=== PATIENT | female | born 1960 | race Caucasian/White ===

== ENCOUNTER 2017-06-02 13:37 | Inpatient (IN) | payer MEDICAID, OTHER ==
[2017-06-02] MEDS ORDERED: Dextrose 50% SYRINGE Inj (50 ml) IVP ONE (14:24)
--- NOTE | 2017-06-02 14:28 | ED PDOC ---
HPI: Psych/Substance Abuse Time Seen by Provider: 06/02/17 13:45 Chief Complaint (Nursing): Psychiatric Evaluation Chief Complaint (Provider): Psychiatric Evaluation ED Caveat: Altered Mental Status History Per: EMS History/Exam Limitations: clinical condition (EDP) Current Symptoms Are (Timing): Still Present Additional Complaint(s): 56 year old female presents to the emergency department via EMS for psychiatric evaluation after patient called 911 multiple times from inside her locked bathroom. Patient arrived screaming, flailing arms, crying and yelling for her children. Unable to obtain history due to patient's current condition. Patient is a threat to herself and staff. PMD: none provided Past Medical History Reviewed: Unable To Obtain (EDP) Vital Signs: Last Vital Signs Temp Pulse Resp 22 06/02/17 13:40 BP Pulse Ox 100 06/02/17 13:40 - Family History Family History: States: Unknown Family Hx - Home Medications Home Medications: Ambulatory Orders Medication Instructions Recorded Unobtainable 06/02/17 - Allergies Allergies/Adverse Reactions: Allergies Allergy/AdvReac Type Severity Reaction Status Date / Time No Known Allergies Allergy Verified 06/02/17 22:43 Review of Systems Review Of Systems: ROS cannot be obtained secondary to pt's inabilty to answer questions. (EDP) Physical Exam - Physical Exam Neurologic/Psych: Positive for: Alert, Mood/Affect (agitated, screaming and uncooperative). Negative for: Aphasia - Laboratory Results Result Diagrams: 06/02/17 14:15 06/02/17 14:15 - ECG O2 Sat by Pulse Oximetry: 100 (RA) Pulse Ox Interpretation: Normal Medical Decision Making Medical Decision Making: Initial Impression: Psychiatric Evaluation Initial Plan: * Acetaminophen * Alcohol serum * BMP * Drug screen, urine * Salicylate * CBC * Ativan 2mg IM * Dextrose 50% inj 50ml IVP * Haldol 5mg IM * UA * Restraints ____ Time: 1530 --Toxicology: elevated levels of acetaminophen and alcohol. Time: 1700 --Patient is endorsed to Dr. Bernie Law. Pending crisis evaluation. Scribe Attestation: Documented by Betzy Garber, acting as a scribe for Mary Pompa MD. Provider Scribe Attestation: All medical record entries made by the Scribe were at my direction and personally dictated by me. I have reviewed the chart and agree that the record accurately reflects my personal performance of the history, physical exam, medical decision making, and the department course for this patient. I have also personally directed, reviewed, and agree with the discharge instructions and disposition. Disposition - Clinical Impression Clinical Impression: Depression - Patient ED Disposition Is Patient to be Admitted: Transfer of Care - Disposition Disposition: Transfer of Care Disposition Time: 17:00 Condition: STABLE Patient Signed Over To: Bernie Law
[2017-06-02 14:45] LABS: BASO # 0.1 K/uL (0.0-0.2); BASO % 1.1 % (0.0-2.0); EOS # 0.1 K/uL (0.0-0.7); EOS % 1.3 % (0.0-4.0); HEMOGLOBIN 10.4 g/dL (12.0-16.0); LYMPH # 2.5 K/uL (1.0-4.3); LYMPH % 44.2 % (20.0-40.0); MEAN CELL VOLUME 59.3 fl (81.0-99.0); MEAN CORPUSCULAR HEMOGLOBIN 18.6 pg (27.0-31.0); MEAN CORPUSCULAR HGB CONC 31.4 g/dL (33.0-37.0); MONO # 0.3 K/uL (0.0-0.8); MONO % 4.6 % (0.0-10.0); NEUT # 2.8 K/uL (1.8-7.0); NEUT % 48.8 % (50.0-75.0); NRBC % 0.1 % (0.0-0.0); RBC 5.58 Mil/uL (3.80-5.20); WHITE BLOOD COUNT 5.7 K/uL (4.8-10.8)
[2017-06-02 14:56] LABS: CALCIUM 9.5 mg/dL (8.4-10.2); GFR AFRICAN-AMERICAN > 60; GFR NON-AFRICAN AMERICAN > 60
[2017-06-02 14:57] LABS: BLOOD UREA NITROGEN 13 mg/dl (7-17)
[2017-06-02 15:13] LABS: BENZODIAZEPINES, UR NEGATIVE (NEGATIVE); PHENCYCLIDINE, UR NEGATIVE (NEGATIVE)
[2017-06-02 15:15] LABS: BARBITURATES, UR NEGATIVE (NEGATIVE); OPIATES, UR NEGATIVE (NEGATIVE)
[2017-06-02 15:16] LABS: URINE BILIRUBIN NEGATIVE (NEGATIVE); URINE BLOOD NEGATIVE (NEGATIVE); URINE CLARITY CLEAR (Clear); URINE COLOR STRAW (YELLOW); URINE GLUCOSE (UA) NEG (Normal); URINE HYALINE CAST >20 /hpf (0-2); URINE LEUKOCYTE ESTERASE NEG Leu/uL (Negative); URINE NITRATE NEGATIVE (NEGATIVE); URINE PROTEIN NEGATIVE (NEGATIVE); URINE UROBILINOGEN 0.2-1.0 mg/dL (0.2-1.0)
[2017-06-02] MEDS ORDERED: Magnesium Hydroxide Susp 30 ml UD PO PRN (22:22)
[2017-06-02] MEDS ORDERED: DiphenhydrAMINE 50 mg/ml Inj IM PRN (22:22)
[2017-06-02] MEDS ORDERED: Alum-Mag Hydrox-Simethicone Susp (30 mL) PO PRN (22:22)
[2017-06-02 22:47] VITALS: RESP 18
--- NOTE | 2017-06-02 23:04 | PCM.BM ---
Treatment Plan Problems - Problems identified on initial assessmt Hopelessness/Helplessness Date Initiated: 06/02/17 Time Initiated: 23:03 Assessment reference: NA Status: Active Treatment assets and liabiliti Patient Assests: cooperative, educated, physically healthy, negotiates basic needs Patient Liabilities: poor support system, relationship conflicts, substance abuse, other (alcohol abuse) - Milieu Protocol Maintain good personal hygiene: daily Remind patient to perform daily oral care , every other day Encourage regular showers Conduct patient checks and document Observation sheet: Q15 minutes Maintain personal safety: every shift Educate patient to report safety concerns to staff, every shift Monitor environment for contraband/sharps Medication safety: Monitor for expected outcome, potential side effects: every shift, Assess barriers to learning: every shift, Assess readiness for medication education: every shift
[2017-06-03 06:23] LABS: T4 7.37 ug/dl (5.5-11.0)
[2017-06-03] MEDS: Multivitamin With Minerals Tab PO SCH (08:59)
--- NOTE | 2017-06-03 14:22 | PCM.PSYCH ---
Initial Psychiatric Evaluation - Initial Psychiatric Evaluation Type of Admission: Voluntary Legal Status: Capacity Chief Complaint (in patient's own words): I just could not sleep and I am angry at my ex he always get away with it Patient's Reaction to Hospitalization: pt agreed to get help History of Present Illness and Precipitating Events: Pt is a 56 year old, , Female, referred to ED by her evp chief exploration officer, Naty Kang, for aggressive behavior and increased irritability. Pt has hx of depression, anxiety opiate use in full remission , alcohol use , pt has been recently using alcohol daily dut to being stressed with the legal conflict with her ex Pt reported having a diagnosis of Depression, Anxiety, OCD, and ADD, and is currently prescribed Klonopin, Xanax, and Prozac pt reported decreased sleep, decreased appetite,anhedonia, anger irritability poor energy passive suicidal ideation no plan Current Medications: Active Medications Generic Name Dose Route Start Last Admin Trade Name Freq PRN Reason Stop Dose Admin Acetaminophen 650 mg 06/02/17 22:22 Tylenol 325mg Tab PO Q4 PRN pain level 4-7 Al Hydrox/Mg Hydrox/Simethicone 30 ml 06/02/17 22:22 Maalox Plus 30 Ml PO Q4 PRN Dyspepsia Diphenhydramine HCl 50 mg 06/02/17 22:22 Benadryl IM Q6 PRN Extrapyramidal S/S Unable PO Diphenhydramine HCl 50 mg 06/02/17 22:22 06/02/17 22:51 Benadryl PO 50 mg Q6 PRN Administration Extrapyramidal Symptoms Diphenhydramine HCl 50 mg 06/02/17 22:48 Benadryl PO HS PRN Sleep Duloxetine HCl 20 mg 06/03/17 11:24 06/03/17 12:42 Cymbalta PO 20 mg DAILY CHRIS Administration Folic Acid 1 mg 06/03/17 09:00 06/03/17 08:59 Folic Acid PO 1 mg DAILY CHRIS Administration Gabapentin 100 mg 06/03/17 11:22 06/03/17 12:45 Neurontin PO Not Given TID CHRIS Haloperidol 5 mg 06/02/17 22:22 Haldol PO Q4 PRN Agitation Haloperidol Lactate 5 mg 06/02/17 22:22 Haldol IM Q4 PRN Agitation, Unable to Take PO Lorazepam 2 mg 06/02/17 22:22 Ativan IM Q4 PRN Anxiety/Agitation,Unable PO Lorazepam 2 mg 06/02/17 22:22 Ativan PO Q4 PRN Anxiety/Agitation Lorazepam 1 mg 06/03/17 09:00 06/03/17 13:11 Ativan PO 1 mg TID CHRIS Administration Magnesium Hydroxide 30 ml 06/02/17 22:22 Milk Of Magnesia PO HS PRN Constipation Multivitamins/Minerals 1 tab 06/03/17 09:00 06/03/17 08:59 Therapeutic-M Tab PO 1 tab DAILY CHRIS Administration Thiamine HCl 100 mg 06/03/17 09:00 06/03/17 08:59 Vitamin B1 Tab PO 100 mg DAILY CHRIS Administration Trazodone HCl 50 mg 06/03/17 22:00 Desyrel PO HS CHRIS Past Psychiatric History - Past Psychiatric History Explanation of prior treatment: multiple rehabs, at least two inpatient hospitalizations History of Abuse: denied History of ETOH/Drug Use: history of opiate and alcohol use Pertinent Medical Hx (Current Medical&Sleep Prob, Allergies): Allergies Allergy/AdvReac Type Severity Reaction Status Date / Time No Known Allergies Allergy Verified 06/02/17 22:43 Unobtainable 06/02/17 Mental Status Examination - Personal Presentation Personal Presentation: Looks stated age - Affect Affect: Depressed - Motor Activity Motor Activity: Psychomotor Agitation - Reliability in Providing Information Reliability in Providing Information: Fair - Speech Speech: Relevant - Mood Mood: Depressed, Anxious - Formal Thought Process Formal Thought Process: Circumstantial - Hallucinations/Delusions Additional comments: denied perceptual disturbances non elicited - Obsessions/Compulsions Obsessions: No Compulsions: No - Risk Risk: Withdrawal, Diminished functioning - Strength & Assets Inventory Strength & Assets Inventory: Family support - Limitations Additional comments: poor insight DSM 5 DX - DSM 5 DSM 5 Diagnosis: alcohol induced mood disorder with depressive features alcohol use disorder generalized anxiety disorder depression - Recommended/Plan of Treatment Treatment Recommendations and Plan of Treatment: neurontin 100mg tid trazodone 50mg qhs cymbalta 20g ativan for symptoms and signs of alcohol withdrawal , down titrate gradually motivational group and supportive therapy
--- NOTE | 2017-06-03 16:11 | CP.PCM.CON ---
History of Present Illness - History of Present Illness History of Present Illness: This is a 56 yo female with a past medical history of sciatica, degenerative disc disease, depression, anxiety, opiate abuse in full remission, OCD, ADD, alcohol abuse, history of anemia, who presented to the ED by ambulance after calling 911 multiple times. When EMS providers arrived she was found to be screaming and flailing, acutely intoxicated. She was then admitted voluntarily to the psychiatry unit. The patient appears calm today. She states that she has taken ultram in the past for chronic sciatic pain that she has. She denies any other problems including chest pain, shortness of breath, weakness, headache, fever, chills, nausea, vomiting, or diarrhea. Review of Systems - Hematologic/Lymphatic Additional comments: A 12 point review of systems was conducted and found to be negative other than in HPI. Past Patient History - Infectious Disease Hx of Infectious Diseases: None - Past Medical History & Family History Past Medical History?: Yes Past Family History: Reviewed and not pertinent - Past Social History Smoking Status: Unknown If Ever Smoked Alcohol: > 2 Drinks/Day - CARDIAC Hx Cardiac Disorders: No Hx Hypercholesterolemia: No Hx Hypertension: No - PULMONARY Hx Respiratory Disorders: No Hx Tuberculosis: No - NEUROLOGICAL HX Cerebrovascular Accident: No Hx Seizures: No - ENDOCRINE/METABOLIC Hx Diabetes Mellitus Type 1: No Hx Diabetes Mellitus Type 2: No Hx Hyperthyroidism: No Hx Hypothyroidism: No - HEMATOLOGICAL/ONCOLOGICAL Hx Cancer: No Hx Human Immunodeficiency Virus (HIV): No - GASTROINTESTINAL Hx Gall Bladder Disease: Yes - GENITOURINARY/GYNECOLOGICAL Hx Sexually Transmitted Disorders: No - PSYCHIATRIC Hx Anxiety: Yes Hx Depression: Yes Hx Substance Use: No (unknwon) - SURGICAL HISTORY Hx Cholecystectomy: Yes (more than 10 yrs ago) - ANESTHESIA Hx Anesthesia: Yes Meds Allergies/Adverse Reactions: Allergies Allergy/AdvReac Type Severity Reaction Status Date / Time No Known Allergies Allergy Verified 06/02/17 22:43 - Medications Medications: Current Medications Acetaminophen (Tylenol 325mg Tab) 650 mg PO Q4 PRN PRN Reason: pain level 4-7 Al Hydrox/Mg Hydrox/Simethicone (Maalox Plus 30 Ml) 30 ml PO Q4 PRN PRN Reason: Dyspepsia Diphenhydramine HCl (Benadryl) 50 mg IM Q6 PRN PRN Reason: Extrapyramidal S/S Unable PO Diphenhydramine HCl (Benadryl) 50 mg PO Q6 PRN PRN Reason: Extrapyramidal Symptoms Last Admin: 06/02/17 22:51 Dose: 50 mg Diphenhydramine HCl (Benadryl) 50 mg PO HS PRN PRN Reason: Sleep Duloxetine HCl (Cymbalta) 20 mg PO DAILY [facility] Last Admin: 06/03/17 12:42 Dose: 20 mg Folic Acid (Folic Acid) 1 mg PO DAILY [facility] Last Admin: 06/03/17 08:59 Dose: 1 mg Gabapentin (Neurontin) 100 mg PO TID [facility] Last Admin: 06/03/17 12:45 Dose: Not Given Haloperidol (Haldol) 5 mg PO Q4 PRN PRN Reason: Agitation Haloperidol Lactate (Haldol) 5 mg IM Q4 PRN PRN Reason: Agitation, Unable to Take PO Lorazepam (Ativan) 2 mg IM Q4 PRN PRN Reason: Anxiety/Agitation,Unable PO Lorazepam (Ativan) 2 mg PO Q4 PRN PRN Reason: Anxiety/Agitation Lorazepam (Ativan) 1 mg PO TID [facility] Last Admin: 06/03/17 13:11 Dose: 1 mg Magnesium Hydroxide (Milk Of Magnesia) 30 ml PO HS PRN PRN Reason: Constipation Multivitamins/Minerals (Therapeutic-M Tab) 1 tab PO DAILY [facility] Last Admin: 06/03/17 08:59 Dose: 1 tab Thiamine HCl (Vitamin B1 Tab) 100 mg PO DAILY [facility] Last Admin: 06/03/17 08:59 Dose: 100 mg Tramadol HCl (Ultram) 50 mg PO Q6 PRN PRN Reason: pain 4-10 Trazodone HCl (Desyrel) 50 mg PO HS [facility] Physical Exam - Additional Findings Additional findings: Physical exam: Constitutional- cooperative, awake, alert Head- NCAT, PERRL Eye- PERRL, EOMI ENT- normal exam, MMM. Neck- normal inspection, supple, no JVD Respiratory- CTAB, no wheezes rales rhonchi Cardiovascular- RRR, +S1, +S2 no MRG GI/Abdominal- normal bowel sounds, soft, no mass, no hsm Skin- warm, dry Extremities Exam- normal capillary refill, normal inspection Neurological Exam- alert, awake, oriented Psych- normal mood, normal affect Results - Vital Signs Recent Vital Signs: Last Vital Signs Temp 99.5 F 06/03/17 09:13 Pulse 77 06/03/17 09:13 Resp 18 06/03/17 09:13 BP 124/75 06/03/17 09:13 Pulse Ox 98 06/02/17 21:46 - Labs Result Diagrams: 06/02/17 14:15 06/02/17 14:15 Labs: Laboratory Results - last 24 hr 06/03/17 06/03/17 05:30 05:30 Hemoglobin A1c 5.6 Triglycerides 56 Cholesterol 199 LDL Cholesterol Direct 77 HDL Cholesterol 106 H Thyroxine (T4) 7.37 TSH 3rd Generation 3.61 Assessment & Plan - Assessment and Plan (Free Text) Plan: ASSESSMENT/PLAN 1) Sciatica, chronic - Start Ultram 50 mg po q6h for pain 4-10 - continue Acetaminophen PRN for pain 1-3 2) Anemia, mild - MCV 59.3, likely iron deficiency anemia, possibly due to poor po intake/ alcoholism - Denies melena or history of rectal bleeding - Obtain iron profile - Start Ferrous sulfate if iron is low 3) Alcohol induced mood disorder with depressive features - management as per psychiatry 4) Generalized anxiety disorder - management as per psychiatry
[2017-06-03 16:29] LABS: IRON 113 ug/dL (37-170)
[2017-06-03 16:39] LABS: % IRON SATURATION 34 % (20-55); TOTAL IRON BINDING CAPACITY 331 ug/dL (250-450)
[2017-06-04] MEDS: Multivitamin With Minerals Tab PO SCH (08:50)
--- NOTE | 2017-06-04 14:16 | PCM.PYCHPN ---
Psychiatric Progress Note - Psychiatric Progress Note Patient seen today, length of contact: pt evaluated discussed with team chart reviewed Patient Chief Complaint: I slept last night so I feel better Problems Identified/Issues Discussed: pt seen in day room, presenting with brighter affect appears less anxious reported better mood and improved sleep, showing insight into illness and agreed to start partial rehab program as recommended by her administrative hearing officer no reported withdrawal symptoms pt denied any current suicidal or homicidal ideations denied perceptual disturbances, no reported side effects of medications Medical Problems: multiple rehabs, at least two inpatient hospitalizations DSM 5 Symptoms Update: alcohol induced mood disorder' alcohol induced anxiety disorder Medication Change: Yes (decrease ativan, prn vistaril) Medical Record Reviewed: Yes Mental Status Examination - Cognitive Function Orientation: Person, Place, Situation Memory: Intact Attention: WNL Concentration: WNL Association: WNL Fund of Knowledge: WN Decription of patient's judgement and insights: fair insight and judgement - Mood Mood: Depressed, Anxious - Affect Affect: Depressed - Speech Speech: Appropriate - Formal Thought Process Formal Thought Process: Circumstantial Psychotic Thoughts and Behaviors: pt denied perceptual disturbances, non elicited - Suicidal Ideation Suicidal Ideation: No - Homicidal Ideation Homicidal Ideation: No Goal/Treatment Plan - Goal/Treatment Plan Need for Continued Stay: Severe depression anxiety, Discharge may exacerbated symptoms Progress Toward Problem(s) and Goals/Treatment Plan: neurontin 100mg tid trazodone 50mg qhs cymbalta 20g ativan for symptoms and signs of alcohol withdrawal , down titrate gradually motivational group and supportive therapy
[2017-06-05 04:43] VITALS: O2SAT 100
[2017-06-05] MEDS: Multivitamin With Minerals Tab PO SCH (08:58)
[2017-06-05 09:21] VITALS: BP 131/66; PULSE 80; TEMP 98.1
--- NOTE | 2017-06-05 11:29 | PCM.PYCHDC ---
Mental Status Examination - Mental Status Examination Orientation: Person, Place, Situation Memory: Intact Mood: Neutral Affect: Broad Speech: Appropriate Attention: WNL Concentration: WNL Association: WNL Fund of Knowledge: WNL Formal Thought Process: No Impairment Description of patient's judgement and insight: fair insight and judgement Psychotic Thoughts and Behaviors: pt denied perceptual disturbances, non elicited Suicidal Ideation: No Current Homicidal Ideation?: No Discharge Summary - Discharge Note Reason for Hospitalization: Pt is a 56 year old, , Female, referred to ED by her chief commercial officer, Naty Kang, for aggressive behavior and increased irritability. Pt has hx of depression, anxiety opiate use in full remission , alcohol use , pt has been recently using alcohol daily dut to being stressed with the legal conflict with her ex Pt reported having a diagnosis of Depression, Anxiety, OCD, and ADD, and is currently prescribed Klonopin, Xanax, and Prozac pt reported decreased sleep, decreased appetite,anhedonia, anger irritability poor energy passive suicidal ideation no plan Consultations:: List each consultation separately and include: 1. Reason for request. 2. Findings. 3. Follow-up Summary of Hospital Course include:: 1. Description of specific treatment plan utilized for patients during their course of treatmen. 2. Summarize the time- course for resolution of acute symptoms and/or regressed behaviors. 3. Describe issues identified and worked on during hospitalization. 4. Describe medication utilized. 5. Describe medical problems identified and treated. 6. Reassessment of suicide risk Summary of Hospital Course: Pt was started on ativan protocol for alcohol withdrawal, cymbalta 20mg daily for depression and anxiety and neurontin 100mg tid for anxiety motivational group and supportive therapy provided chief commercial officer contacted by nursing home social worker upon pt consent pt on discharge , mental status was stable denied suicidal or homicidal ideations denied perceptual disturbances, no reported side effects of medications - Final Diagnosis (DSM 5) Condition upon Discharge: STABLE DSM 5: alcohol induced mood disorder with depressive features alcohol induced anxiety disorder generalized anxiety disorder Disposition: HOME/ ROUTINE Follow-up Treatment Plan: neurontin 100mg tid trazodone 50mg qhs cymbalta 20g ativan for symptoms and signs of alcohol withdrawal , down titrate gradually motivational group and supportive therapy Prescriptions/Medication Reconciliation: DULoxetine [Cymbalta] 20 mg PO DAILY 30 Days #30 ecc Gabapentin [Neurontin] 100 mg PO TID 30 Days #90 cap hydrOXYzine Pamoate [Vistaril] 25 mg PO TID PRN 30 Days #90 cap PRN Reason: Anxiety traZODone [Desyrel] 50 mg PO HS 30 Days #30 tab - Antipsychotic Medications Pt discharged on 2 or more routine antipsychotic medications: No
== END 2017-06-05 11:40 | disposition home or self-care (01) | DRG 895 ==
LOC: H.ER 13:37 → H.ERHOLD 19:16 → H.PSYCH 22:07
PROVIDERS: ADMIT Psychiatry & Neurology Psychiatry; ATTEND Psychiatry & Neurology Psychiatry
PROC: HZ57ZZZ Individual Psychotherapy for Substance Abuse Treatment, Motivational Enhancement (ICD-10-PCS; principal; 2017-06-02)
PROC: HZ59ZZZ Individual Psychotherapy for Substance Abuse Treatment, Supportive (ICD-10-PCS; 2017-06-02)
PROC: GZHZZZZ Group Psychotherapy (ICD-10-PCS; 2017-06-02)
DX: F10.14 Alcohol abuse with alcohol-induced mood disorder (principal); R45.851 Suicidal ideations; D50.9 Iron deficiency anemia, unspecified; F41.1 Generalized anxiety disorder; F10.180 Alcohol abuse with alcohol-induced anxiety disorder; M54.30 Sciatica, unspecified side; F42.9 Obsessive-compulsive disorder, unspecified

== ENCOUNTER 2018-04-20 07:50 | Emergency (ER) | payer MEDICAID ==
[2018-04-20 07:58] VITALS: RESP 18
--- NOTE | 2018-04-20 09:37 | ED PDOC ---
HPI: Neurologic - General Time Seen by Provider: 04/20/18 08:16 Chief Complaint (Nursing): Anxiety Chief Complaint (Provider): Anxiety Source: patient Exam Limitations: no limitations - History of Present Illness Timing/Duration: other (this morning) Allergies/Adverse Reactions: Allergies No Known Allergies Allergy (Verified 06/02/17 22:43) Home Medications: Ambulatory Orders DULoxetine [Cymbalta] 20 mg PO DAILY 30 Days #30 ecc 06/05/17 Gabapentin [Neurontin] 100 mg PO TID 30 Days #90 cap 06/05/17 hydrOXYzine Pamoate [Vistaril] 25 mg PO TID PRN 30 Days #90 cap 06/05/17 traZODone [Desyrel] 50 mg PO HS 30 Days #30 tab 06/05/17 Additional Complaint(s): Patient is a 57 y/o female with a PMHx of depression, anxiety, and gall bladder disease who presents to the ED for evaluation a series of panic attack's onset this morning. Patient reports she is unsure as to what is causing them. Patient feels anxious and has been pacing back and forth. Patient states she ran out of her 1 mg Xanax medication. Patient wants to speak with a psychiatrist. PCP: None Provided Past Medical History Vital Signs: Last Vital Signs Temp 98.3 F 04/20/18 07:56 Pulse 89 04/20/18 07:56 Resp 18 04/20/18 07:56 BP 122/77 04/20/18 07:56 Pulse Ox 99 04/20/18 07:56 - Medical History PMH: Anxiety, Depression, Gall Bladder Disease Denies: Diabetes, Hepatitis, HIV, HTN, Hypercholesterolemia, Hyperthyroidism, Hypothyroidism, Seizures, Sexually Transmitted Disease - Surgical History Surgical History: Cholecystectomy (more than 10 yrs ago) - Family History Family History: States: No Known Family Hx - Social History Current smoker - smoking cessation education provided: No Ex-Smoker (has not smoked in the last 12 months): No Alcohol: None Drugs: Denies - Home Medications Home Medications: Ambulatory Orders Medication Instructions Recorded DULoxetine [Cymbalta] 20 mg PO DAILY 30 Days #30 ecc 06/05/17 Gabapentin [Neurontin] 100 mg PO TID 30 Days #90 cap 06/05/17 hydrOXYzine Pamoate [Vistaril] 25 mg PO TID PRN 30 Days #90 cap 06/05/17 traZODone [Desyrel] 50 mg PO HS 30 Days #30 tab 06/05/17 - Allergies Allergies/Adverse Reactions: Allergies Allergy/AdvReac Type Severity Reaction Status Date / Time No Known Allergies Allergy Verified 06/02/17 22:43 Review of Systems ROS Statement: Except As Marked, All Systems Reviewed And Found Negative Psych: Positive for: Anxiety Physical Exam - Reviewed Nursing Documentation Reviewed: Yes Vital Signs Reviewed: Yes - Physical Exam Appears: Positive for: Non-toxic, In Acute Distress (restless) Head Exam: Positive for: ATRAUMATIC, NORMAL INSPECTION, NORMOCEPHALIC Skin: Positive for: Normal Color, Warm, Dry Eye Exam: Positive for: EOMI, Normal appearance, PERRL Neurologic/Psych: Positive for: Alert, Oriented, Other (anxiety). Negative for: Motor/Sensory Deficits Comments: Patient was pacing around, therefore, was unable to conduct further physical exam. - ECG O2 Sat by Pulse Oximetry: 99 (RA) Pulse Ox Interpretation: Normal Medical Decision Making Medical Decision Making: Time: 815 Impression: Anxiety and Panic Attack Plan: Crisis Evaluation Xanax 1 mg PO Scribe Attestation: Documented by Braeden Rutledge, acting as a scribe for Danna Mari MD. Provider Scribe Attestation: All medical record entries made by the Scribe were at my direction and personally dictated by me. I have reviewed the chart and agree that the record accurately reflects my personal performance of the history, physical exam, medical decision making, and the department course for this patient. I have also personally directed, reviewed, and agree with the discharge instructions and disposition. Disposition - Clinical Impression Clinical Impression: Anxiety, Anxiety attack - Patient ED Disposition Is Patient to be Admitted: No Doctor Will See Patient In The: Office Counseled Patient/Family Regarding: Studies Performed, Diagnosis, Need For Followup - Disposition Referrals: [facility] [Outside] Disposition: Routine/Home Disposition Time: 10:29 Condition: GOOD Additional Instructions: Celestino CASTRO, thank you for letting us take care of you today. Your provider was Danna Mari MD and you were treated for ANXIETY. The emergency medical care you received today was directed at your acute symptoms. If you were prescribed any medication, please fill it and take as directed. It may take several days for your symptoms to resolve. Return to the Emergency Department if your symptoms worsen, do not improve, or if you have any other problems. Please contact your doctor or call one of the physicians/clinics you have been referred to that are listed on the Patient Visit Information form that is included in your discharge packet. Bring any paperwork you were given at discharge with you along with any medications you are taking to your follow up visit. Our treatment cannot replace ongoing medical care by a primary care provider outside of the emergency department. Thank you for allowing the [facility] team to be part of your care today. If you had an X-Ray or CT scan: A Radiologist will review the ED reading if any change in treatment is needed we will contact you. If you had a blood, urine, or wound culture: It will take several days for the results, if any change in treatment is needed we will contact you. If you had an STI test: It will take 48 hours for the results. Please call after 1 week if you have not heard back. Instructions: Anxiety, Adult (DC)
[2018-04-20 11:03] VITALS: BP 117/74; PULSE 62; TEMP 98.2; O2SAT 100
== END 2018-04-20 10:45 | disposition home or self-care (01) ==
LOC: H.ER 07:50
DX: F41.9 Anxiety disorder, unspecified (principal)

== ENCOUNTER 2018-04-21 13:56 | Inpatient (IN) | payer MEDICAID ==
[2018-04-21 14:04] VITALS: O2SAT 99
--- NOTE | 2018-04-21 14:49 | ED PDOC ---
HPI: Psych/Substance Abuse Time Seen by Provider: 04/21/18 14:13 Chief Complaint (Nursing): Psychiatric Evaluation Chief Complaint (Provider): alcohol intoxication History/Exam Limitations: intoxication Onset/Duration Of Symptoms: Unknown Additional Complaint(s): brought to ER for altered mental status and lethargy pt admits to taking multiple sedating medications (xanax and pain medications) and alcohol today denies homicidal or suicidal ideation denies hallucinations Offers no complaints except feeling tired. Past Medical History Reviewed: Historical Data, Nursing Documentation, Vital Signs Vital Signs: Last Vital Signs Temp 98.7 F 04/21/18 13:58 Pulse 64 04/21/18 13:58 Resp 16 04/21/18 13:58 BP 108/64 04/21/18 13:58 Pulse Ox 99 04/21/18 13:58 - Medical History PMH: Anxiety, Depression, Gall Bladder Disease Denies: Diabetes, Hepatitis, HIV, HTN, Hypercholesterolemia, Hyperthyroidism, Hypothyroidism, Seizures, Sexually Transmitted Disease - Surgical History Surgical History: Cholecystectomy (more than 10 yrs ago) - Family History Family History: States: Unknown Family Hx - Social History Alcohol: Social Drugs: Prescription medications - Immunization History Hx Tetanus Toxoid Vaccination: No Hx Influenza Vaccination: No Hx Pneumococcal Vaccination: No - Home Medications Home Medications: Ambulatory Orders Medication Instructions Recorded ALPRAZolam [Xanax] 1 mg PO HS 04/20/18 Amphetamine Salt Combination 10 mg PO BID 04/20/18 [Adderall] Fluoxetine HCl [Prozac] 40 mg PO DAILY 04/21/18 Gabapentin [Neurontin] 600 mg PO Q8 04/21/18 oxyCODONE [oxyCODONE Immediate 10 mg PO Q12 PRN 04/21/18 Release Tab] traMADol [Ultram] 50 mg PO Q6 PRN 04/21/18 - Allergies Allergies/Adverse Reactions: Allergies Allergy/AdvReac Type Severity Reaction Status Date / Time No Known Allergies Allergy Verified 04/20/18 11:16 Review of Systems ROS Statement: Except As Marked, All Systems Reviewed And Found Negative Constitutional: Positive for: Weakness Psych: Positive for: Anxiety. Negative for: Suicidal ideation, Withdrawal Physical Exam - Reviewed Nursing Documentation Reviewed: Yes Vital Signs Reviewed: Yes - Physical Exam Appears: Positive for: No Acute Distress (but intoxicated) Head Exam: Positive for: ATRAUMATIC, NORMOCEPHALIC Skin: Positive for: Warm, Dry Eye Exam: Positive for: Conjunctival injection ENT: Positive for: Normal ENT Inspection Neck: Positive for: Painless ROM, Supple Cardiovascular/Chest: Positive for: Regular Rate, Rhythm. Negative for: Murmur Respiratory: Positive for: Normal Breath Sounds. Negative for: Respiratory Distress Gastrointestinal/Abdominal: Positive for: Soft. Negative for: Tenderness Back: Positive for: Normal Inspection. Negative for: Decreased ROM Extremity: Positive for: Normal ROM. Negative for: Deformity Lymphatic: Negative for: Adenopathy Neurologic/Psych: Positive for: Mood/Affect (anxious mood but flat affect), Oth er (Sleepy but easily arousable, mildly slured speech). Negative for: Alert, Motor/Sensory Deficits - Laboratory Results Result Diagrams: 04/21/18 17:57 04/21/18 17:57 - ECG O2 Sat by Pulse Oximetry: 99 - Progress ED Course And Treament: 4p Pt had full meal in ER. Ambulating without difficulty. Stable for discharge. Detox resources included with discharge paperwork. 5p Upon discharge pt reported that she would try hang herself and tried to stay in bathroom of her room and wrap emergency cord around her neck. Crisis eval. 6p Evaluated by Slime PERALES who emerson Hough. Pt to be hospitalized for major depression and alcohol use disorder There are no acute medical conditions Condition: Improved Disposition - Clinical Impression Clinical Impression: Alcohol intoxication, Benzodiazepine dependence Counseled Patient/Family Regarding: Studies Performed, Diagnosis - Disposition Disposition: Routine/Home Disposition Time: 16:12 Condition: STABLE
[2018-04-21 18:06] LABS: BASO # 0.1 K/uL (0.0-0.2); BASO % 1.1 % (0.0-2.0); EOS # 0.1 K/uL (0.0-0.7); EOS % 1.7 % (0.0-4.0); HEMOGLOBIN 9.4 g/dL (12.0-16.0); LYMPH % 50.8 % (20.0-40.0); MEAN CORPUSCULAR HEMOGLOBIN 18.5 pg (27.0-31.0); MEAN CORPUSCULAR HGB CONC 31.9 g/dL (33.0-37.0); MEAN PLATELET VOLUME 8.8 fl (7.2-11.7); MONO # 0.3 K/uL (0.0-0.8); MONO % 4.4 % (0.0-10.0); NEUT # 2.5 K/uL (1.8-7.0); NRBC % 0.1 % (0.0-0.0); RBC 5.08 Mil/uL (3.80-5.20); RED CELL DISTRIBUTION WIDTH 16.8 % (11.5-14.5); WHITE BLOOD COUNT 5.8 K/uL (4.8-10.8)
[2018-04-21 18:15] LABS: ACETAMINOPHEN < 10.0 ug/ml (10.0-30.0); SALICYLATE < 1.0 mg/dl
--- NOTE | 2018-04-21 18:15 | RAD ---
Date of service: 04/21/2018 HISTORY: depression COMPARISON: No prior. TECHNIQUE: Chest PA and lateral FINDINGS: LUNGS: No active pulmonary disease. PLEURA: No significant pleural effusion identified. No pneumothorax apparent. CARDIOVASCULAR: No aortic atherosclerotic calcification present. Normal cardiac size. No pulmonary vascular congestion. OSSEOUS STRUCTURES: Thoracolumbar scoliosis. VISUALIZED UPPER ABDOMEN: For quadrant surgical clips. OTHER FINDINGS: None. IMPRESSION: No active disease.
[2018-04-21 18:16] LABS: ALB/GLOB RATIO 1.4 (1.0-2.1); ALBUMIN 4.2 g/dL (3.5-5.0); ALT/SGPT 28 U/L (9-52); AST/SGOT 31 U/L (14-36); BLOOD UREA NITROGEN 17 mg/dl (7-17); CALCIUM 9.2 mg/dL (8.4-10.2); GFR NON-AFRICAN AMERICAN > 60
[2018-04-21 18:23] LABS: BARBITURATES, UR NEGATIVE (NEGATIVE); BENZODIAZEPINES, UR POSITIVE (NEGATIVE); OPIATES, UR NEGATIVE (NEGATIVE); PHENCYCLIDINE, UR NEGATIVE (NEGATIVE)
[2018-04-21 18:24] LABS: SQUAMOUS EPITHIAL 1 /hpf (0-5); URINE BACTERIA OCC (<OCC); URINE BILIRUBIN NEGATIVE (NEGATIVE); URINE BLOOD NEGATIVE (NEGATIVE); URINE CLARITY CLOUDY (Clear); URINE COLOR YELLOW (YELLOW); URINE GLUCOSE (UA) NEG (NEGATIVE); URINE HYALINE CAST 0-2 /hpf (0-2); URINE LEUKOCYTE ESTERASE NEG Leu/uL (Negative); URINE PROTEIN 30 mg/dL (NEGATIVE); URINE UROBILINOGEN 0.2-1.0 mg/dL (0.2-1.0)
[2018-04-21] MEDS ORDERED: Alum-Mag Hydrox-Simethicone Susp (30 mL) PO PRN (21:31)
[2018-04-21] MEDS ORDERED: Magnesium Hydroxide Susp 30 ml UD PO PRN (21:31)
[2018-04-21] MEDS ORDERED: Bismuth Subsalicylate 262 mg/15 ml Sus (240 ml) PO PRN (21:31)
--- NOTE | 2018-04-21 22:08 | PCM.BM ---
<MaribethLuke - Last Filed: 04/21/18 22:06> Treatment Plan Problems - Problems identified on initial assessmt Hopelessness/Helplessness Date Initiated: 04/21/18 Time Initiated: 22:07 Assessment reference: NA Status: Active Feelings of worthlessness Date Initiated: 04/21/18 Time Initiated: 22:09 Assessment reference: NA Status: Active Agitated/Aggressive Behavior Date Initiated: 04/21/18 Time Initiated: 22:09 Assessment reference: NA Status: Active Ineffective Impulse Control Date Initiated: 04/21/18 Time Initiated: 22:10 Assessment reference: NA Status: Active Knowledge Deficit: Alcohol Use Date Initiated: 04/21/18 Time Initiated: 22:10 Assessment reference: NA Status: Active Treatment assets and liabiliti Patient Assests: cooperative, educated, physically healthy, negotiates basic needs Patient Liabilities: financial problems, substance abuse - Milieu Protocol Maintain good personal hygiene: every shift Encourage regular showers, every shift Remind patient to perform daily oral care, every shift Assist patient to perform ADL's Conduct patient checks and document Observation sheet: Q15 minutes Maintain personal safety: every shift Educate patient to report safety concerns to staff, every shift Monitor environment for contraband/sharps Medication safety: Monitor for expected outcome, potential side effects: every shift, Assess barriers to learning: every shift, Assess readiness for medication education: every shift <Nini Hough - Last Filed: 04/22/18 11:24> - Diagnosis (1) Alcohol-induced mood disorder Status: Acute Interventions: Medication management, Individual and group therapy, Psychoeducation, Motivational Interviewing 04/22/18 11:25 (2) Alcohol use disorder Status: Acute Interventions: Medication management, Individual and group therapy, Psychoeducation, Motivational Interviewing 04/22/18 11:25 (3) Benzodiazepine abuse Status: Acute Interventions: Medication management, Individual and group therapy, Psychoeducation, Motivational Interviewing 04/22/18 11:25 (4) Amphetamine and psychostimulant abuse Status: Acute Interventions: Medication management, Individual and group therapy, Psychoeducation, Motivational Interviewing 04/22/18 11:25 <Destiny Lala - Last Filed: 04/22/18 12:51> Family Contact Family contact: Patient agrees to contact, Family has been contacted by patient, Telephone contact initiated by staff Family contact name: Jeffry- son & Clau- daughter Family contacted how many times per week?: 1 Family contact comment: [phone] & [phone] - Outside Agency [facility] Care involvment: Information-sharing Agency contact number: - Goals for Treatment Patient goals for treatment: Pt will improve overall mood. Pt will be free of suicidal thoughts. Pt will develop strategies for thought distraction when reminating on the past. Pt will learn 2 positive coping skills to manger her depression. Pt will be free of alcohol use. Pt will learn five triggers for alcohol use. Discharge/Continuing Care - Education Needs Education Needs: Family Medication, Family Diagnosis/Disease Process, Family Coping Skills, Family Placement options, Family Community resources, Family Health Practices/Safety, Family Personal Hygiene/Grooming, Family Aftercare Safety Plan, Patient Medication, Patient Diagnosis/Disease Process, Patient Coping Skills, Patient Placement options, Patient Community resources, Patient Health Practices/Safety, Patient Personal Hygiene/Grooming, Patient Aftercare Safety Plan - Discharge Discharge Criteria: Tolerates medication w/o severe side effects, Free of Suicidal thoughts, Normal sleep pattern, Ability to care for self, Reduction of target symptoms, Other (Decreased depressive and anxiety symptoms) Discharge to:: Home, With Family - Additional Comments 04/22/18 12:33 Pt seen and discussed in team meeting. Reason for hospitalization reviewed and discussed. Pt reported she was self referred to the ED due to increased symptoms of anxiety and depression in the context of alcohol use and prescription misuse. Pt reported that prior to ED arrival she had 4 3oz bottles of vodka (approximately 8 shots). Pt reported feeling depressed and anxious. Pt reported that she consumes alcohol daily "no more than 4 bottles and no less than 2." Pt reported that she ran out of her anxiety medication (xanax). Pt reported having several triggers contributing to increased anxiety and depression and self medicating with alcohol. Pt refused to provide elaborate details about her triggers/stressors, but reported "a lot of family problems." Pt reported she resides with her boyfriend who financially supports her. Pt reported that the goal of the hospitalization is to "get my medication and get back on track." Pt's medications reviewed and discussed. psycho-education regarding medication management and compliance provided by Dr. Gianluca MD. Pt's social and medical issues reviewed. Pt reported provided bond writer with verba and written consent to contact her son, Jeffry ([phone]) and daughter, Clau ([phone]) for additional collateral information. Tx plan reviewed and discussed - pharmaceutical physician management, daily activity and group attendance, daily MD evaluation, Q15 in effect, and SW to contact family for collateral information. SW to continue to follow case. - Treatment Team Participation Discussed with Family/SO: No Was Patient/Family/SO present at Treatment Team Meeting: Yes
[2018-04-22 07:57] LABS: BASO # 0.1 K/uL (0.0-0.2); BASO % 1.4 % (0.0-2.0); EOS # 0.1 K/uL (0.0-0.7); HEMOGLOBIN 9.8 g/dL (12.0-16.0); LYMPH # 2.3 K/uL (1.0-4.3); LYMPH % 49.9 % (20.0-40.0); MEAN CELL VOLUME 58.4 fl (81.0-99.0); MEAN CORPUSCULAR HEMOGLOBIN 18.4 pg (27.0-31.0); MEAN CORPUSCULAR HGB CONC 31.6 g/dL (33.0-37.0); MEAN PLATELET VOLUME 8.9 fl (7.2-11.7); MONO # 0.2 K/uL (0.0-0.8); MONO % 4.1 % (0.0-10.0); NEUT # 1.9 K/uL (1.8-7.0); NEUT % 41.6 % (50.0-75.0); NRBC % 0.1 % (0.0-0.0); RBC 5.32 Mil/uL (3.80-5.20); RED CELL DISTRIBUTION WIDTH 16.4 % (11.5-14.5); WHITE BLOOD COUNT 4.6 K/uL (4.8-10.8)
[2018-04-22 08:18] LABS: IRON 93 ug/dL (37-170)
[2018-04-22 08:28] LABS: % IRON SATURATION 31 % (20-55); TOTAL IRON BINDING CAPACITY 303 ug/dL (250-450)
[2018-04-22 08:29] LABS: LDL CHOLESTEROL 96 mg/dL (0-129)
[2018-04-22 08:36] LABS: T4 6.33 ug/dl (5.5-11.0)
[2018-04-22 08:53] LABS: ALB/GLOB RATIO 1.3 (1.0-2.1); ALBUMIN 4.1 g/dL (3.5-5.0); ALT/SGPT 27 U/L (9-52); AST/SGOT 30 U/L (14-36); BLOOD UREA NITROGEN 19 mg/dl (7-17); CALCIUM 9.7 mg/dL (8.4-10.2); FERRITIN 35.7 ng/Ml (11.1-264.0); GFR NON-AFRICAN AMERICAN > 60; HDL CHOLESTEROL 108 MG/DL (30-70)
[2018-04-22 09:20] VITALS: BMI 20.7
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
[2018-04-22] MEDS: Multivitamin With Minerals Tab PO SCH (12:12)
--- NOTE | 2018-04-22 12:19 | CARD ---
APPROVED REPORT Date of service: 04/21/2018 EKG Measurement Heart [id number] <Conclusion> Normal sinus rhythm Normal ECG
[2018-04-22 13:23] LABS: FOLATE 5.4 ng/mL
--- NOTE | 2018-04-22 14:42 | CP.PCM.CON ---
History of Present Illness - History of Present Illness History of Present Illness: 57 yo female with history of ETOH abuse admitted to [facility] because of worsening depression and suicidal ideation. Review of Systems - Review of Systems All systems: reviewed and no additional remarkable complaints except (aside from those mentioned above, 12 point system review were negative by me) Past Patient History - Infectious Disease Hx of Infectious Diseases: None - Tetanus Immunizations Tetanus Immunization: Unknown - Past Medical History & Family History Past Medical History?: Yes - Past Social History Smoking Status: Light Smoker < 10 Cigarettes Daily Chewing Tobacco Use: No Cigar Use: No Alcohol: > 2 Drinks/Day Drugs: Prescription medications Home Situation {Lives}: With Family - CARDIAC Hx Hypercholesterolemia: No Hx Hypertension: No - PULMONARY Hx Tuberculosis: No - NEUROLOGICAL Hx Seizures: No - ENDOCRINE/METABOLIC Hx Hyperthyroidism: No Hx Hypothyroidism: No - HEMATOLOGICAL/ONCOLOGICAL Hx Human Immunodeficiency Virus (HIV): No - GASTROINTESTINAL Hx Gall Bladder Disease: Yes - GENITOURINARY/GYNECOLOGICAL Hx Sexually Transmitted Disorders: No - PSYCHIATRIC Hx Anxiety: Yes Hx Depression: Yes - SURGICAL HISTORY Hx Cholecystectomy: Yes (more than 10 yrs ago) - ANESTHESIA Hx Anesthesia: Yes Meds Allergies/Adverse Reactions: Allergies Allergy/AdvReac Type Severity Reaction Status Date / Time No Known Allergies Allergy Verified 04/20/18 11:16 - Medications Medications: Current Medications Acetaminophen (Tylenol 325mg Tab) 650 mg PO Q4 PRN PRN Reason: Pain, moderate (4-7) Al Hydrox/Mg Hydrox/Simethicone (Maalox Plus 30 Ml) 30 ml PO Q4 PRN PRN Reason: Dyspepsia Bismuth Subsalicylate (Pepto-Bismol) 524 mg PO Q4 PRN PRN Reason: Diarrhea Duloxetine HCl (Cymbalta) 30 mg PO BID COUNT INCLUDES THE [facility] Folic Acid (Folic Acid) 1 mg PO DAILY COUNT INCLUDES THE [facility] Last Admin: 04/22/18 12:12 Dose: 1 mg Gabapentin (Neurontin) 600 mg PO TID COUNT INCLUDES THE [facility] Last Admin: 04/22/18 12:12 Dose: 600 mg Lorazepam (Ativan) 1 mg PO TID COUNT INCLUDES THE [facility] Last Admin: 04/22/18 12:10 Dose: 1 mg Lorazepam (Ativan) 1 mg PO Q8 PRN PRN Reason: Anxiety Magnesium Hydroxide (Milk Of Magnesia) 30 ml PO HS PRN PRN Reason: Constipation Multivitamins/Minerals (Therapeutic-M Tab) 1 tab PO DAILY CHRIS Last Admin: 04/22/18 12:12 Dose: 1 tab Thiamine HCl (Vitamin B1 Tab) 100 mg PO DAILY CHRIS Last Admin: 04/22/18 12:12 Dose: 100 mg Physical Exam - Constitutional Appears: No Acute Distress - Head Exam Head Exam: ATRAUMATIC - Eye Exam Eye Exam: absent: Scleral icterus - ENT Exam ENT Exam: Mucous Membranes Moist - Neck Exam Neck exam: Negative for: Meningismus - Respiratory Exam Respiratory Exam: absent: Rales, Rhonchi, Wheezes, Respiratory Distress - Cardiovascular Exam Cardiovascular Exam: REGULAR RHYTHM, +S1, +S2 - GI/Abdominal Exam GI & Abdominal Exam: Soft. absent: Tenderness - Rectal Exam Rectal Exam: Deferred - Extremities Exam Extremities exam: Negative for: pedal edema - Neurological Exam Neurological exam: Alert, Oriented x3 - Psychiatric Exam Psychiatric exam: Normal Affect - Skin Skin Exam: Dry, Intact Results - Vital Signs Recent Vital Signs: Last Vital Signs Temp 97.8 F 04/22/18 09:17 Pulse 60 04/22/18 09:17 Resp 18 04/22/18 09:17 BP 111/71 04/22/18 09:17 Pulse Ox 99 04/21/18 20:27 - Labs Result Diagrams: 04/22/18 07:45 04/22/18 07:45 Labs: Laboratory Results - last 24 hr 04/21/18 04/21/18 04/21/18 14:55 15:00 17:57 WBC 5.8 RBC 5.08 Hgb 9.4 L Hct 29.5 L MCV 58.0 L MCH 18.5 L MCHC 31.9 L RDW 16.8 H Plt Count 350 MPV 8.8 Neut % (Auto) 42.0 L Lymph % (Auto) 50.8 H Lawrence % (Auto) 4.4 Eos % (Auto) 1.7 Baso % (Auto) 1.1 Neut # (Auto) 2.5 Lymph # (Auto) 3.0 Lawrence # (Auto) 0.3 Eos # (Auto) 0.1 Baso # (Auto) 0.1 Sodium Potassium Chloride Carbon Dioxide Anion Gap BUN Creatinine Est GFR ( Amer) Est GFR (Non-Af Amer) POC Glucose (mg/dL) 107 Random Glucose Hemoglobin A1c Calcium Iron TIBC % Saturation Ferritin Total Bilirubin AST ALT Alkaline Phosphatase Total Protein Albumin Globulin Albumin/Globulin Ratio Triglycerides Cholesterol LDL Cholesterol Direct HDL Cholesterol Vitamin B12 Folate Free T4 Thyroxine (T4) TSH 3rd Generation Urine Color Urine Clarity Urine pH Ur Specific [place] Urine Protein Urine Glucose (UA) Urine Ketones Urine Blood Urine Nitrate Urine Bilirubin Urine Urobilinogen Ur Leukocyte Esterase Urine RBC (Auto) Urine Microscopic WBC Ur Squamous Epith Cells Urine Bacteria Hyaline Casts Salicylates Urine Opiates Screen Urine Methadone Screen Acetaminophen Ur Barbiturates Screen Ur Phencyclidine Scrn Ur Amphetamines Screen U Benzodiazepines Scrn U Oth Cocaine Metabols U Cannabinoids Screen Alcohol, Quantitative 190 H 04/21/18 04/21/18 04/21/18 17:57 17:57 17:57 WBC RBC Hgb Hct MCV MCH MCHC RDW Plt Count MPV Neut % (Auto) Lymph % (Auto) [place] % (Auto) Eos % (Auto) Baso % (Auto) Neut # (Auto) Lymph # (Auto) Lawrence # (Auto) Eos # (Auto) Baso # (Auto) Sodium 138 Potassium 3.7 Chloride 101 Carbon Dioxide 24 Anion Gap 17 BUN 17 Creatinine 0.6 L Est GFR ( Amer) > 60 Est GFR (Non-Af Amer) > 60 POC Glucose (mg/dL) Random Glucose 122 H Hemoglobin A1c Calcium 9.2 Iron TIBC % Saturation Ferritin Total Bilirubin 0.2 AST 31 ALT 28 Alkaline Phosphatase 60 Total Protein 7.2 Albumin 4.2 Globulin 3.0 Albumin/Globulin Ratio 1.4 Triglycerides Cholesterol LDL Cholesterol Direct HDL Cholesterol Vitamin B12 Folate Free T4 Thyroxine (T4) TSH 3rd Generation Urine Color Urine Clarity Urine pH Ur Specific [place] Urine Protein Urine Glucose (UA) Urine Ketones Urine Blood Urine Nitrate Urine Bilirubin Urine Urobilinogen Ur Leukocyte Esterase Urine RBC (Auto) Urine Microscopic WBC Ur Squamous Epith Cells Urine Bacteria Hyaline Casts Salicylates < 1.0 Urine Opiates Screen Negative Urine Methadone Screen Negative Acetaminophen < 10.0 L Ur Barbiturates Screen Negative Ur Phencyclidine Scrn Negative Ur Amphetamines Screen Positive H U Benzodiazepines Scrn Positive U Oth Cocaine Metabols Negative U Cannabinoids Screen Negative Alcohol, Quantitative 04/21/18 04/22/18 04/22/18 18:14 07:45 07:45 WBC 4.6 L RBC 5.32 H Hgb 9.8 L Hct 31.1 L MCV 58.4 L MCH 18.4 L MCHC 31.6 L RDW 16.4 H Plt Count 331 MPV 8.9 Neut % (Auto) 41.6 L Lymph % (Auto) 49.9 H [place] % (Auto) 4.1 Eos % (Auto) 3.0 Baso % (Auto) 1.4 Neut # (Auto) 1.9 Lymph # (Auto) 2.3 Lawrence # (Auto) 0.2 Eos # (Auto) 0.1 Baso # (Auto) 0.1 Sodium 135 Potassium 4.0 Chloride 98 Carbon Dioxide 31 H Anion Gap 10 BUN 19 H Creatinine 0.5 L Est GFR ( Amer) > 60 Est GFR (Non-Af Amer) > 60 POC Glucose (mg/dL) Random Glucose 107 H Hemoglobin A1c Calcium 9.7 Iron TIBC % Saturation Ferritin 35.7 Total Bilirubin 0.5 AST 30 ALT 27 Alkaline Phosphatase 62 Total Protein 7.3 Albumin 4.1 Globulin 3.1 Albumin/Globulin Ratio 1.3 Triglycerides 76 D Cholesterol 215 H LDL Cholesterol Direct 96 HDL Cholesterol 108 H Vitamin B12 506 Folate 5.4 Free T4 Thyroxine (T4) 6.33 TSH 3rd Generation 1.22 Urine Color Yellow Urine Clarity Cloudy Urine pH 6.0 Ur Specific [place] 1.020 Urine Protein 30 Urine Glucose (UA) Neg Urine Ketones Negative Urine Blood Negative Urine Nitrate Negative Urine Bilirubin Negative Urine Urobilinogen 0.2-1.0 Ur Leukocyte Esterase Neg Urine RBC (Auto) 2 Urine Microscopic WBC 5 Ur Squamous Epith Cells 1 Urine Bacteria Occ H Hyaline Casts 0-2 Salicylates Urine Opiates Screen Urine Methadone Screen Acetaminophen Ur Barbiturates Screen Ur Phencyclidine Scrn Ur Amphetamines Screen U Benzodiazepines Scrn U Oth Cocaine Metabols U Cannabinoids Screen Alcohol, Quantitative 04/22/18 04/22/18 04/22/18 07:45 07:45 07:45 WBC RBC Hgb Hct MCV MCH MCHC RDW Plt Count MPV Neut % (Auto) Lymph % (Auto) Lawrence % (Auto) Eos % (Auto) Baso % (Auto) Neut # (Auto) Lymph # (Auto) Lawrence # (Auto) Eos # (Auto) Baso # (Auto) Sodium Potassium Chloride Carbon Dioxide Anion Gap BUN Creatinine Est GFR ( Amer) Est GFR (Non-Af Amer) POC Glucose (mg/dL) Random Glucose Hemoglobin A1c 5.4 Calcium Iron 93 TIBC 303 % Saturation 31 Ferritin Total Bilirubin AST ALT Alkaline Phosphatase Total Protein Albumin Globulin Albumin/Globulin Ratio Triglycerides Cholesterol LDL Cholesterol Direct HDL Cholesterol Vitamin B12 Folate Free T4 0.83 Thyroxine (T4) TSH 3rd Generation Urine Color Urine Clarity Urine pH Ur Specific [place] Urine Protein Urine Glucose (UA) Urine Ketones Urine Blood Urine Nitrate Urine Bilirubin Urine Urobilinogen Ur Leukocyte Esterase Urine RBC (Auto) Urine Microscopic WBC Ur Squamous Epith Cells Urine Bacteria Hyaline Casts Salicylates Urine Opiates Screen Urine Methadone Screen Acetaminophen Ur Barbiturates Screen Ur Phencyclidine Scrn Ur Amphetamines Screen U Benzodiazepines Scrn U Oth Cocaine Metabols U Cannabinoids Screen Alcohol, Quantitative Assessment & Plan (1) Depression Status: Acute Comment: psyche is managing (2) Suicidal ideation Status: Acute (3) ETOH abuse Status: Acute
[2018-04-23] MEDS: Multivitamin With Minerals Tab PO SCH (08:22)
--- NOTE | 2018-04-23 08:32 | PCM.PYCHPN ---
Psychiatric Progress Note - Psychiatric Progress Note Patient seen today, length of contact: Pt evaluated, case discussed w/ team, chart reviewed Patient Chief Complaint: Depression Problems Identified/Issues Discussed: Patient submitted a 48 hr letter last night requesting to be discharged because "I have to many things to do at home." She denies acute depression/anxiety/AH/VH/SI/HI at this time. Psychoeducation provided on the dangers of alcohol and benzodiazepine abuse. Patient reports that she plans to continue taking Xanax when she is discharged from the hospital, despite psychoeducation provided. Patient is not an acute danger to herself or others at this time; but continues to have poor insight regarding substance abuse. Medication Change: Yes (Taper Ativan) Medical Record Reviewed: Yes Consults ordered or reviewed: Medicine consult Mental Status Examination - Cognitive Function Orientation: Person, Place, Situation, Time Memory: Intact Attention: WNL Concentration: WNL Association: WNL Fund of Knowledge: WNL Decription of patient's judgement and insights: Poor I/J re: chronic substance abuse - Mood Mood: Neutral - Affect Affect: Constricted - Speech Speech: Appropriate - Formal Thought Process Formal Thought Process: No Impairment Psychotic Thoughts and Behaviors: NO AH/VH/paranoia/delusions - Suicidal Ideation Suicidal Ideation: No - Homicidal Ideation Homicidal Ideation: No Goal/Treatment Plan - Goal/Treatment Plan Need for Continued Stay: Remain at risks for inpatient hospitalization Progress Toward Problem(s) and Goals/Treatment Plan: Alcohol Induced Mood Disorder; Alcohol Use Disorder; Benzodiazepine Use Disorder; Psychostimulant Use Disorder -Individual and group therapy -Continue Cymbalta -Taper Ativan -Hold Adderall -Psychoeducation on the dangers of substance abuse -Patient declined nicotine cessation -Medicine consult -Disposition planning- patient submitted a 48 hour letter; will observe clinically for safety with possible discharge tomorrow
[2018-04-23 16:14] VITALS: PULSE 75
[2018-04-24 05:34] VITALS: BP 101/62; RESP 18; TEMP 98.1
[2018-04-24] MEDS: Multivitamin With Minerals Tab PO SCH (08:35)
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
== END 2018-04-24 10:20 | disposition left against medical advice (07) | DRG 749 ==
LOC: H.ER 13:56 → H.ERHOLD 18:08 → H.STEP 20:41
PROVIDERS: ADMIT Psychiatry & Neurology Psychiatry; ATTEND Psychiatry & Neurology Psychiatry
PROC: HZ52ZZZ Individual Psychotherapy for Substance Abuse Treatment, Cognitive-Behavioral (ICD-10-PCS; principal; 2018-04-21)
PROC: GZHZZZZ Group Psychotherapy (ICD-10-PCS; 2018-04-21)
PROC: GZ58ZZZ Individual Psychotherapy, Cognitive-Behavioral (ICD-10-PCS; 2018-04-21)
DX: F10.14 Alcohol abuse with alcohol-induced mood disorder (principal); F10.129 Alcohol abuse with intoxication, unspecified; Y90.6 Blood alcohol level of 120-199 mg/100 ml; F13.20 Sedative, hypnotic or anxiolytic dependence, uncomplicated; R45.851 Suicidal ideations; F32.9 Major depressive disorder, single episode, unspecified; F41.9 Anxiety disorder, unspecified; Z63.9 Problem related to primary support group, unspecified; Z91.410 Personal history of adult physical and sexual abuse; F17.210 Nicotine dependence, cigarettes, uncomplicated